=== PATIENT | female | born 1945 | race Caucasian/White ===

== ENCOUNTER 2023-11-20 08:50 | Emergency (ER) | payer MEDICARE ==
[~2023-11-20] VITALS: Ht 160 cm; Wt 104.5 kg
[2023-11-20 08:54] VITALS: TEMP 98.4
[2023-11-20] MEDS ORDERED: OMEP20CA13 PO (08:55)
[2023-11-20] MEDS ORDERED: TRIA1TAB5 PO (08:55)
[2023-11-20] MEDS ORDERED: PANT-31 PO (08:55)
[2023-11-20] MEDS ORDERED: METF-1211 PO (08:55)
[2023-11-20] MEDS ORDERED: DESL5TAB39 PO (08:55)
[2023-11-20 09:15] LABS: GLUCOMETER DEV NAME(LOC) ER.7; GLUCOSE,POINT OF CARE 138 MG/DL (70-110)
[2023-11-20] MEDS: LIDOCAINE 5% TRANSDERMAL PATCH TD ONE (10:07)
[2023-11-20] MEDS: ACETAMINOPHEN 325 MG TABLET PO ONE (10:07)
[2023-11-20] MEDS: METHOCARBAMOL 500 MG TABLET PO ONE (10:08)
[2023-11-20] MEDS: IBUPROFEN 600 MG TABLET PO ONE (10:08)
[2023-11-20] MEDS ORDERED: LIDO700A15 TP (10:53)
[2023-11-20] MEDS ORDERED: METH-659 PO (10:53)
[2023-11-20 11:00] VITALS: BP 155/75; PULSE 65; RESP 16; O2SAT 99
== END 2023-11-20 11:19 | disposition home or self-care (01) ==
LOC: EMS 08:53
DX: S46.911A Strain of unspecified muscle, fascia and tendon at shoulder and upper arm level, right arm, initial encounter (principal); M75.01 Adhesive capsulitis of right shoulder; E11.9 Type 2 diabetes mellitus without complications; Z96.653 Presence of artificial knee joint, bilateral; X58.XXXA Exposure to other specified factors, initial encounter; Y93.89 Activity, other specified; Y92.89 Other specified places as the place of occurrence of the external cause; Y99.8 Other external cause status
CPT/HCPCS: 82962; 99284